=== PATIENT | male | born 1960 | race Caucasian/White ===

== ENCOUNTER 2017-02-02 16:44 | Emergency (ER) | payer SELFPAY ==
[~2017-02-02] VITALS: Ht 172.7 cm; Wt 90.0 kg
[2017-02-02] MEDS ORDERED: EPINEPHRINE 1 MG/ML, 1ML ONE (17:04)
[2017-02-02] MEDS ORDERED: FAMOTIDINE 20 MG/2 ML ONE (17:05)
[2017-02-02] MEDS ORDERED: methylPREDNISolone SOD SUCC 125 MG/2 ML ONE (17:05)
[2017-02-02] MEDS ORDERED: DIPHENHYDRAMINE 50 MG/ML, 1ML ONE (17:05)
[2017-02-02] MEDS ORDERED: PLEASE ENTER ALLERGIES MC SCH ×2 (17:30)
[2017-02-02] MEDS ORDERED: SODIUM CHLORIDE 0.9% 1,000ML IVBOLUS ONE (17:30)
[2017-02-02] MEDS ORDERED: FAMOTIDINE 20 MG/2 ML IVPush ONE (17:30)
[2017-02-02] MEDS ORDERED: methylPREDNISolone SOD SUCC 125 MG/2 ML IVPush ONE (17:30)
[2017-02-02] MEDS ORDERED: DIPHENHYDRAMINE 50 MG/ML, 1ML IVPush ONE (17:30)
[2017-02-02] MEDS ORDERED: EPINEPHRINE 1 MG/ML, 1ML IM ONE (17:30)
[2017-02-02 17:33] LABS: BLOOD UREA NITROGEN 15 mg/dL (7-18)
[2017-02-02 17:44] LABS: ASPARTATE AMINO TRANSFERASE 17 U/L (15-37)
[2017-02-02 20:48] VITALS: BP 125/76
== END 2017-02-02 20:50 | disposition home or self-care (01) ==
LOC: ED 20:00
DX: T39.315A Adverse effect of propionic acid derivatives, initial encounter (principal); Y92.9 Unspecified place or not applicable; T78.40XA Allergy, unspecified, initial encounter; I10 Essential (primary) hypertension; L50.9 Urticaria, unspecified; L50.0 Allergic urticaria
CPT/HCPCS: 36415; 80053; 85025; 93005; 96361; 96372; 96374; 96375; 99285; J0171; J1200; J2930; J7030; S0028